=== PATIENT | female | born 1965 | race Caucasian/White ===

== ENCOUNTER 2017-03-11 20:10 | Emergency (ER) | payer BC, OTHER ==
[~2017-03-11] VITALS: Ht 165.1 cm; Wt 109.5 kg
[~2017-03-11 20:10] MED LIST: FIBER POWDER; NAPR1TAB9; PRLSR20
[2017-03-11 20:12] VITALS: TEMP 36.7; Ht 165.1 cm; Wt 109.5 kg
[2017-03-11] MEDS ORDERED: OXYCODONE HCL IR 5 MG TAB (IMMEDIATE RELEASE) PO STA (20:34)
[2017-03-11] MEDS ORDERED: RIZA5TAB10 PO (20:49)
[2017-03-11] MEDS ORDERED: NASONEX NAE (20:49)
[2017-03-11] MEDS ORDERED: BUTACAP36 PO (20:49)
[2017-03-11] MEDS ORDERED: BIOT1TAB5 PO (20:49)
[2017-03-11] MEDS ORDERED: MULT1CHW PO (20:49)
[2017-03-11] MEDS ORDERED: LDXCR30 TOP (20:49)
[2017-03-11] MEDS ORDERED: AMIT25TA9 PO (20:49)
[2017-03-11] MEDS ORDERED: PRLSR20 PO (20:49)
[2017-03-11] MEDS ORDERED: FEXO1TAB49 PO (20:49)
[2017-03-11] MEDS ORDERED: NAPR1TAB9 PO (20:49)
[2017-03-11] MEDS ORDERED: FLUO0.0566 TOP (20:49)
[2017-03-11] MEDS ORDERED: CYCL5TAB PO (20:49)
--- NOTE | 2017-03-11 21:15 | DIAGNOSTIC IMAGING REPORT ---
R KNEE 3 VIEWS CLINICAL HISTORY: Right medial/ posterior knee pain. No trauma pain COMPARISON: None. DISCUSSION: The bones and joint spaces appear intact. There is no evidence of fracture, dislocation or bony disease. There is no evidence for soft tissue swelling. IMPRESSION: Negative study. The above report was generated using voice recognition software. It may contain grammatical, syntax or spelling errors. Electronically signed by: Paul Castro M.D. 03/11/2017 9:14 PM Dictated Date/Time: 03/11/2017 9:13 PM
--- NOTE | 2017-03-11 21:47 | DIAGNOSTIC IMAGING REPORT ---
R VENOUS DOPP LOWER EXT UNILAT CLINICAL HISTORY: Right medial/ posterior knee pain. No trauma TECHNIQUE: Venous Doppler COMPARISON STUDY: None FINDINGS: Normal study IMPRESSION: Normal study The above report was generated using voice recognition software. It may contain grammatical, syntax or spelling errors. Electronically signed by: Paul aCstro M.D. 03/11/2017 9:45 PM Dictated Date/Time: 03/11/2017 9:45 PM
--- NOTE | 2017-03-11 22:08 | EMERGENCY ROOM VISIT NOTE ---
History First contact with patient: 20:29 Chief Complaint: KNEEPAIN Stated Complaint: BACK OF RT KNEE PAIN History of Present Illness The patient is a 51 year old female who presents to the Emergency Room via private vehicle accompanied by male with complaints of "knee pain, back of right knee". The patient states that she has a history of fibromyalgia, and over the past 3-4 weeks has been expressing pain around the right knee joint. She states that as she ambulates a little click upon occasion in the right knee. She denies any chest pain, shortness of breath, history of blood clots. She denies any injury or trauma to the right knee. Review of Systems A complete 6-point Review of Systems was discussed with the patient, with pertinent positives and negatives listed in the History of Present Illness. All remaining Review of Systems questions can be considered negative unless otherwise specified. Past Medical/Surgical History Fibromyalgia. Family History No pertinent. Social History Smoking Status: Never Smoker Alcohol Use: none Drug Use: none Marital Status: Current/Historical Medications Scheduled Amitriptyline Hcl (Elavil), 25 MG PO HS Biotin (Biotin), 1 TAB PO DAILY Multiple Vitamins W/ Minerals (One-A-Day For Her Vitacra), 2 TABS PO DAILY Omeprazole (Prilosec), 20 MG PO BID Rizatriptan Benzoate (Maxalt), 5 MG PO prn ud [Nasonex], 2 SPRAYS KE DAILY Scheduled PRN Ojamqxttff-Oluecza-Fplykfvd (Fiorinal), 1 CAP PO Q4 PRN for Headache Cyclobenzaprine Hcl (Flexeril), 5 MG PO TID PRN for Muscle Spasms Fexofenadine Hcl (Eugenia Allergy), 1 TAB PO DAILY PRN for Seasonal Allergies Fluocinonide (Fluocinonide), 1 APPLN TOP BID PRN for PSORIASIS Fluocinonide (Lidex 0.05% Cream), 1 APPLN TOP BID PRN for PSORIASIS Naproxen (Aleve), 220 MG PO TID PRN for Pain Oxycodone Ir (Roxicodone Ir), 1-2 TAB PO Q4H PRN for Pain Physical Exam Vital Signs Date Time Temp Pulse Resp B/P (MAP) Pulse Ox O2 Delivery O2 Flow Rate FiO2 03/11/17 22:35 88 17 171/106 96 9/27/17 20:12 36.7 107 18 158/100 98 Room Air Physical Exam VITAL SIGNS - Vital signs and nursing notes were reviewed. Stable. GENERAL -51-year-old female appearing her stated age who is in no acute distress. Communicates well with provider and answers questions appropriately. SKIN - Without rashes. Skin overlying the right knee is unremarkable. HEAD - NC/AT. EXTREMITIES - No clubbing or peripheral cyanosis. No pretibial edema present. Tenderness to palpation overlying the entire right knee joint. There is no distal or proximal leg tenderness. She is neurovascularly intact in this region. Pain is mostly in the medial aspect of the right knee joint. +5/5 strength noted in UE/LE bilaterally. Medical Decision & Procedures ER Provider Diagnostic Interpretation: [~ rep ct add3]] R KNEE 3 VIEWS CLINICAL HISTORY: Right medial/ posterior knee pain. No trauma pain COMPARISON: None. DISCUSSION: The bones and joint spaces appear intact. There is no evidence of fracture, dislocation or bony disease. There is no evidence for soft tissue swelling. IMPRESSION: Negative study. R VENOUS DOPP LOWER EXT UNILAT CLINICAL HISTORY: Right medial/ posterior knee pain. No trauma TECHNIQUE: Venous Doppler COMPARISON STUDY: None FINDINGS: Normal study IMPRESSION: Normal study The above report was generated using voice recognition software. It may contain grammatical, syntax or spelling errors. Electronically signed by: Paul Castro M.D. 03/11/2017 9:45 PM Dictated Date/Time: 03/11/2017 9:45 PM The above report was generated using voice recognition software. It may contain grammatical, syntax or spelling errors. Electronically signed by: Paul Castro M.D. 03/11/2017 9:14 PM Dictated Date/Time: 03/11/2017 9:13 PM R VENOUS DOPP LOWER EXT UNILAT CLINICAL HISTORY: Right medial/ posterior knee pain. No trauma TECHNIQUE: Venous Doppler COMPARISON STUDY: None FINDINGS: Normal study IMPRESSION: Normal study The above report was generated using voice recognition software. It may contain grammatical, syntax or spelling errors. Electronically signed by: Paul Castro M.D. 03/11/2017 9:45 PM Dictated Date/Time: 03/11/2017 9:45 PM Medications Administered Medications (Trade) Dose Ordered Sig/Nora Route Start Time Stop Time Status Last Admin Dose Admin Oxycodone HCl (Roxicodone Immediate Rel Tab) 5 mg NOW STAT PO 03/11/17 20:34 03/11/17 20:36 DC 03/11/17 20:41 5 MG Oxycodone HCl (Roxicodone Immediate Rel 5MG Home Pack) 1 homepack UD STAT PO 03/11/17 22:11 03/11/17 22:12 DC 03/11/17 22:29 1 HOMEPACK Medical Decision Patient was seen and evaluated as above. After obtaining a thorough history and physical examination radiographs obtained of the right leg as well as ultrasound. She denied chance of . She was given OxyIR for her pain. X-rays negative. Ultrasound is negative. I suspect she may have a meniscal injury, therefore be placed in a knee immobilizer, and will be nonweightbearing. She indicated that she has crutches at home. I recommend she follows up with orthopedics. Number was provided. She was educated upon management. She was educated upon worrisome symptoms in which to return, had questions and provided discharge, and was discharged home in good condition. was driving. Sort prescription for OxyIR was written. In the evaluation and treatment of this patient, the following differential diagnoses were considered: Patellar Fracture, Tibial Plateau Fracture, Distal Femur Fracture, ACL Injury, PCL Injury, Collateral Ligament Injury, Pes Anserine Bursitis, Maisonneuve Fracture. She is to follow up regarding elevated blood pressure. [place] Drug Monitoring Program Search Results: patient reviewed within database, no issues identified Impression Primary Impression: Knee pain Departure Information Dispostion Home / Self-Care Condition GOOD Prescriptions Oxycodone Ir (Roxicodone Ir) 5 Mg Tab 1-2 TAB PO Q4H Y for Pain, #15 TAB For Initial Treatment Prov: Hiro Rojas PA-C 03/11/17 Referrals Destinee Sifuentes D.O. (PCP) Patient Instructions [facility] Additional Instructions You have been treated in the Emergency Department for Knee Pain. You have received pain medicine in the emergency department which impairs your ability to operate a vehicle. It is illegal for you to drive after receiving these medicines. You have been prescribed Oxy IR to be used for pain control. This is a narcotic medication. You cannot drive or consume alcohol while on this medicine. This medicine should only be used for pain that cannot be controlled with over-the- counter pain medicines. For pain control, you can use the following [id number] medicines if no allergies, kidney or liver problems: - Regular strength (325mg/tab) Tylenol (acetaminophen) 2 tabs every 4-6 hours as needed. Do not exceed 12 tablets in a 24 hour period. Avoid taking more than 3 grams (3000 mg) of Tylenol per day. This includes any other sources of acetaminophen you may take on a regular basis. - Regular strength (200 mg/tab) Advil (ibuprofen) 1-2 tabs every 4-6 hours as needed. Do not exceed a dose of 3200 mg per day. If this is a recent injury (<24 hrs), ice can be applied to the area of pain for the first 3 days to help decrease pain and inflammation. Ice massages can be performed by freezing water in a paper cup, peeling back the cup to expose the ice and then massaging over the affected area. You have been provided the number for an Orthopaedic Surgeon. You should call this number as soon as possible to establish a follow-up visit from today's Emergency Department visit. Keep the knee brace in place until cleared by Orthopedics. Use the crutches you have to keep ALL weight off of the knee until weight bearing is tolerable. Return to the Emergency Department if your current symptoms worsen despite treatment course outlined above. Please follow-up for elevated blood pressure. Problem Qualifiers Primary Impression: Knee pain Chronicity: acute Laterality: right Qualified Codes: M25.561 - Pain in right knee
[2017-03-11] MEDS ORDERED: OXYCODONE IR HOME PACK PO STA (22:11)
[2017-03-11] MEDS ORDERED: OXYC1TAB3 PO (22:18)
[2017-03-11 22:35] VITALS: BP 171/106; PULSE 88; O2SAT 96
== END 2017-03-11 22:30 | disposition home or self-care (01) ==
LOC: C.EDB 20:11 → C.EDD 22:30
DX: M25.561 Pain in right knee (principal); M79.7 Fibromyalgia; Z79.899 Other long term (current) drug therapy